=== PATIENT | male | born 1985 | race Hispanic/Latino ===

== ENCOUNTER 2017-05-06 14:23 | Emergency (ER) | payer OTHER, BC ==
[2017-05-06 14:44] VITALS: BP 128/69; RESP 17; TEMP 99; O2SAT 98; BMI 32.9
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
[2017-05-06 14:56] VITALS: PULSE 97
== END 2017-05-06 15:16 | disposition home or self-care (01) ==
LOC: ED 14:23
DX: Z04.1 Encounter for examination and observation following transport accident (principal); V49.49XA Driver injured in collision with other motor vehicles in traffic accident, initial encounter; Y92.410 Unspecified street and highway as the place of occurrence of the external cause; Y99.8 Other external cause status